=== PATIENT | male | born 1955 | race Caucasian/White ===

== ENCOUNTER 2017-11-26 15:51 | Outpatient (REF) | payer BC, SELFPAY ==
[2017-11-28 17:16] LABS: Osmolality, Urine 553 mos/kg (150-1150)
== END 2017-11-26 16:11 ==
LOC: LBN 15:51
PROVIDERS: PCP Family Medicine; Visit Provider Nurse Practitioner Family
DX: R35.8 Other polyuria (principal); R35.0 Frequency of micturition
CPT/HCPCS: 83935; 87086

== ENCOUNTER 2017-12-01 01:09 | Outpatient (CLI) | payer BC, SELFPAY ==
--- NOTE | 2017-12-01 09:33 | DI.US_ITS ---
SYMPTOM/DIAGNOSIS: URINARY FREQ. SENSATION OF INCOMPLETE EMPTYING BPH WITH LUTS, R33.9, R35.0 RENAL ULTRASOUND: The right kidney measured 11.8 x 6.0 x 4.7 cm. A 2 x 1.7 x 2 cm superior medial pole cyst is seen. The left kidney measured 11.3 x 6.2 x 5.7 cm and is unremarkable. The pre-void bladder contains 138 cc. Both ureteral jets were visualized. The post-void bladder contains 12 cc. The prostatic volume is 22 cc. SUMMARY: The examination is unremarkable save for a right renal cyst measuring 2 x 1.7 x 2 cm. The prostate appears to be top limits of normal in size.
[2017-12-01 12:09] LABS: BUN 16 mg/dL (7-18); Calcium 8.4 mg/dL (8.5-10.1); Chloride 106 mmol/L (98-107); Glucose 97 mg/dL (70-100); Potassium 4.8 mmol/L (3.5-5.1); Sodium 141 mmol/L (136-145)
[2017-12-01 12:22] LABS: Hemoglobin A1C 5.7 % (4.5-6.2)
[2017-12-02 10:07] LABS: PSA, Screening 1.2 ng/ml (0-4.5)
== END 2017-12-01 01:29 ==
PROVIDERS: PCP Family Medicine; Visit Provider Nurse Practitioner Family
DX: R33.9 Retention of urine, unspecified (principal); R35.0 Frequency of micturition; N40.1 Benign prostatic hyperplasia with lower urinary tract symptoms
CPT/HCPCS: 36415; 76770; 80048; 84153; 83036

== ENCOUNTER 2018-09-05 07:32 | Emergency (ER) | payer BC, SELFPAY ==
[2018-09-05 07:34] VITALS: BP 146/70; PULSE 54; RESP 14; TEMP 36.3; O2SAT 100
--- NOTE | 2018-09-05 07:39 | W.ED.GENAD ---
Discharge Plan Disposition Patient Disposition: HOME Condition: Stable Discharge Details Chief Complaint: FlankPain Clinical Impression: Left ureteral stone Primary Care Provider: Conor Rizzo ED Provider: Becki Mckeon Home Meds and New Rx's Prescriptions: New oxycodone-acetaminophen [Percocet] 5-325 mg tablet 1 tab PO Q8H PRN (Reason: pain) Qty: 9 RF: 0 tamsulosin [Flomax] 0.4 mg capsule 0.4 mg PO DAILY Qty: 7 RF: 0 ondansetron 4 mg tablet,disintegrating 4 mg PO Q8H PRN (Reason: nausea and vomiting) Qty: 9 RF: 0 Continued aspirin [Aspir-81] 81 MG tablet,delayed release (DR/EC) 81 mg PO DAILY RF: 0 multivitamin [Daily Multi-Vitamin] 1 EACH tablet 1 ea PO DAILY RF: 0 triamcinolone acetonide 15 GM cream 1 film Topical 2-4 times daily PRN Qty: 1 RF: 0 sumatriptan succinate [Imitrex] 100 MG tablet 50 mg PO PRN Qty: 9 RF: 11 Discharge Instructions Instructions: Oxycodone/Acetaminophen (By mouth), Tamsulosin (By mouth), Kidney Stones (ED), How to Strain Your Urine (ED) Additional Instructions: Please return immediately to the emergency department if you develop any new or worsening symptoms or if you become otherwise concerned. It is extremely important that you call as soon as possible to make an appointment to be seen in follow-up this visit by her primary care doctor and also by a urologist. Referrals: Wu Fall MD [ [facility] STAFF PHYSICIAN] - Conor Rizzo DO [Primary Care Provider] - Discharge Data Discharge Date/Time-TO BE ENTERED AT DEPARTURE: 09/05/18 11:42 Medical Decision Making Hair Nelson is a 62-year-old man with history of GERD, hyperlipidemia who presented to the emergency department with waxing and waning left-sided flank pain that began at 4 AM this morning, now significantly improved without intervention. On exam patient is very well and nontoxic appearing, appears comfortable. No CVA tenderness, no abdominal tenderness to palpation. Concern for likely ureterolithiasis, possibly passed versus pyelonephritis versus other. Exam/history is not consistent with acute aortic pathology, sepsis, ACS, testicular torsion, orchitis, other acute emergent testicular etiology. Plan for CT renal stone, screening labs, IV fluid hydration, IV pain control, IV Zofran. Will monitor and reassess. Pt with several episodes of severe flank pain improved with IV dialudid, toradol. 2x3mm stone left ureteral stone on CT. No UTI on UA. I called and spoke with Dr. Fall of urology and relayed Pt presentation and results, who recommended flomax 0.4mg daily, will see pt as outpt in f/u. I offered admission for pain control vs outpt management with Pt, who requests discharge at this time. Plan for rx zofran, percocet, flomax, and OTC ibuprofen. I had a lengthy discussion with the Pt re: RTED precautions and importance of outpt f/u with Pts' PCP and urology. Pt verbalized understanding of the plan and was amenable. Pt was d/rosanne to home with clear plan for outpt f/u. All questions were answered. Medical Records Medical records reviewed: Yes I reviewed the patient's medical records. Imaging Data Radiologic Study: Attestation: I personally reviewed and interpreted this imaging study as follows: Radiologist's impression: NONCONTRAST CT ABDOMEN AND PELVIS: Comparison is made with abdomen ultrasound dated 01 Dec 2017. There is moderate left hydronephrosis secondary to a 2-3 mm stone in the mid left ureter. There are additional nonobstructing stones in the upper and lower poles of the left kidney. A cyst is noted at the upper pole of the right kidney. No right renal calculi are seen. The prostate is mildly enlarged. The bladder is unremarkable. The heart size is normal. The lung bases show dependent changes. There is a cyst in the left lobe of the liver. The gallbladder, spleen, adrenals and pancreas are unremarkable. There is no bowel dilatation or inflammatory change. There are a few diverticula in the sigmoid colon. There is a normal quantity of stool. Severe degenerative disc changes are seen in the lumbar spine. The aorta shows mild calcification and is normal in diameter. IMPRESSION: Moderate left hydronephrosis secondary to a 2x3 mm stone in the mid left ureter. Lab Data Lab results reviewed: Yes I reviewed the patient's lab results. Laboratory Tests Range/Units 09/05/18 09/05/18 09/05/18 07:46 07:46 09:06 WBC (4.4-10.8) k/cumm 7.63 RBC (4.50-6.00) m/cumm 4.27 L Hgb (13.5-17.5) g/dL 13.5 Hct (40.0-50.0) % 39.9 L MCV (80-95) fL 93.4 MCH (27.0-33.0) pg 31.6 MCHC (32.0-36.0) g/dL 33.8 RDW (11.8-14.1) % 12.8 Plt Count (130-400) x1000/uL 219 MPV (8.0-11.0) fL 10.4 Immature Gran % 0.4 Neutrophils % 88.5 Lymphocytes % 5.8 Monocytes % 4.2 Eosinophils % 0.8 Basophils % 0.3 Absolute Neutrophils (1.2-6.7) k/cumm 6.76 H Absolute Lymphocytes (1.2-3.4) k/cumm 0.44 L Absolute Monocytes (0.11-0.7) k/cumm 0.32 Absolute Eosinophils (0.0-0.7) k/cumm 0.06 Absolute Basophils (0.0-0.2) k/cumm 0.02 Sodium (136-145) mmol/L 144 Potassium (3.5-5.1) mmol/L 4.4 Chloride (98-107) mmol/L 107 Carbon Dioxide (21.0-32.0) mmol/L 27.7 Anion Gap (3-11) mmol/L 9.3 BUN (7-18) mg/dL 19 H Creatinine (0.70-1.30) mg/dL 1.29 Estimated GFR/1.73 m2 (mL/min/1.73m2) 56.07 Glucose (70-100) mg/dL 130 H Calcium (8.5-10.1) mg/dL 8.3 L Total Bilirubin (0.2-1.0) mg/dL 0.2 AST (15-37) U/L 18 ALT (12-78) U/L 28 Alkaline Phosphatase (46-116) U/L 147 H Total Protein (6.4-8.2) g/dL 7.0 Albumin (3.4-5.0) g/dL 3.5 Urine Color (Yellow) Yellow Urine Clarity (Clear) Clear Urine pH (5-8) 5.5 Ur Specific Alverda (1.005-1.025) >= 1.030 H Urine Protein (Negative) mg/dL Trace H Urine Ketones (Negative) mg/dL Negative Urine Blood (Negative) Trace-intact H Urine Nitrite (Negative) Negative Urine Bilirubin (Negative) Negative Urine Urobilinogen (Up TO 0.2) EU/dL 0.2 Ur Leukocyte Esterase (Negative) Negative Urine RBC (0-2) 3-5 H Urine WBC (0-5) HPF 0-2 Ur Epithelial Cells (Negative) HPF Few Urine Crystals (Negative) HPF Negative Urine Bacteria (Negative) HPF Rare Urine Casts (Negative) LPF 0-2 hyaline Urine Mucus (Negative) Moderate Ur Culture Indicated? No Urine Glucose (Negative) mg/dL Negative HPI General Mode of arrival: ambulatory. Date/Time Provider Initiated Documentation: 09/05/18 07:39. Limitations to Documentation: no limitations. Information obtained by: patient, family, RN notes reviewed and old records reviewed. HPI Narrative: Hair Nelson is a 62-year-old man with history of hyperlipidemia, GERD presenting to the emergency department with left flank pain. Patient reports that he woke up at 4 AM this morning with stabbing pain to his left flank. He also had significant dry heaving. Patient is accompanied by his who also provides a history. They report that pain has been waxing and waning, with several episodes of severe left flank pain accompanied by nausea. Last episode of pain occurred just prior to arrival in the emergency department, patient vomited Gatorade that he had drank just prior. He reports some radiation of the pain when it occurs into his left abdomen and testicles, no abd or testicular pain currently. Patient reports that he took nothing at home for the pain. He reports that pain level is currently a 2 out of 10, and is the lowest since he started earlier this morning. He denies any other pain, fevers, diarrhea, constipation, pain with urination, weakness/numbness of the extremities, shortness of breath, cough. Patient reports that yesterday he was pain-free in his usual state of health. Had been eating and drinking as usual. Patient reports that he does not think he has urinated since onset of pain this morning. Never had similar symptoms in the past. Related Data Home Medications Medication Instructions Recorded Confirmed aspirin [Aspir-81] 81 mg PO DAILY tab 04/17/13 09/05/18 multivitamin [Daily Multi-Vitamin] 1 ea PO DAILY tab 04/17/13 09/05/18 triamcinolone acetonide 1 film TOPICAL 2-4 times daily PRN 02/22/17 09/05/18 #1 tube sumatriptan succinate [Imitrex] 50 mg PO PRN #9 tab 07/21/17 09/05/18 ondansetron 4 mg PO Q8H PRN #9 tab 09/05/18 oxycodone-acetaminophen [Percocet] 1 tab PO Q8H PRN #9 tab 09/05/18 tamsulosin [Flomax] 0.4 mg PO DAILY #7 cap 09/05/18 Previous Rx's Medication Instructions Recorded triamcinolone acetonide 1 film TOPICAL 2-4 times daily PRN 02/22/17 #1 tube sumatriptan succinate [Imitrex] 50 mg PO PRN #9 tab 07/21/17 ondansetron 4 mg PO Q8H PRN #9 tab 09/05/18 oxycodone-acetaminophen [Percocet] 1 tab PO Q8H PRN #9 tab 09/05/18 tamsulosin [Flomax] 0.4 mg PO DAILY #7 cap 09/05/18 Allergies Allergy/AdvReac Type Severity Reaction Status Date / Time No Known Allergies Allergy Verified 09/05/18 07:37 General Stated Complaint: Urinary ANANTH: 3 Review of Systems Review of Systems Constitutional: denies fevers Eyes: denies eye pain ENT: denies facial pain, dental pain, sore throat Cardiovascular: denies chest pain, edema Respiratory: denies SOB, cough GI: denies constipation, diarrhea, reports mild left lower quadrant pain, nausea/vomiting : Reports flank pain MSK: denies back pain, neck pain, arthralgias, myalgias Skin: denies rash Neuro: denies headaches, numbness, weakness [facility] Medical History Migraine (Chronic 03/07/69) Irritable bowel syndrome (Chronic 03/07/94) Hyperlipidemia (Chronic 03/07/94) Esophageal reflux (Chronic 02/05/02) 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) Backache, unspecified (Chronic 09/05/02) Social History Smoking/Tobacco Use Status: Never Alcohol Intake: current Alcohol Intake frequency: holidays/special occasions only Drug use: Never Substance use type: does not use Household members: spouse Housing: house Number of Children: 2 current occupation: self-contractor What type of physical activity do you participate in: regular exercise Frequency: daily Seatbelt use: always Helmet use: Yes Drive intox or ride w/intox company truck driver: No Water heater temp set <120 deg: Yes Working smoke detector in home: Yes Fire extinguisher in home: Yes Carbon monox detector in home: Yes Do you feel safe at home: Yes Do you feel safe in your relationship?: Yes Exam Narrative Exam Narrative: Constitutional: well and [id number], pleasant, conversing normally HENT: head atraumatic/normocephalic/normal inspection, mucous membranes moist Eyes: conjunctiva normal, sclera normal, pupils 3mm b/l Neck: no stridor, normal ROM, trachea midline Chest: normal inspection Resp: normal work of breathing, LCTAB Cardio: normal rate, normal rhythm, no murmur appreciated GI: abdomen soft, non-tender, non-distended, no CVA tenderness to palpation Back: normal inspection, no rash, no tenderness to palpation Skin: warm, dry, normal color, no rash Neuro: alert, not altered, grossly non-focal, normal tone Ext: no edema Psych: normal mood, normal affect, normal behavior Course Vital Signs Temperature 36.3 C L 09/05/18 07:34 Pulse 54 L 09/05/18 07:34 Respiratory Rate 14 09/05/18 07:34 Blood Pressure 146/70 H 09/05/18 07:34 Pulse Oximetry 100 09/05/18 07:34 Temperature 36.3 C L 09/05/18 07:34 Temperature Source Temporal Artery Scan 09/05/18 07:34 Pulse 54 L 09/05/18 07:34 Respiratory Rate 14 09/05/18 07:34 Respiratory Effort Non-Labored 09/05/18 07:36 Blood Pressure 146/70 H 09/05/18 07:34 Blood Pressure Position Sitting 09/05/18 07:34 Pulse Oximetry 100 09/05/18 07:34 Oxygen Delivery Method Room Air 09/05/18 07:34 Oxygen Flow Rate 0 09/05/18 07:34 Pain Level 3 09/05/18 07:37
[2018-09-05] MEDS: Normal Saline 1,000 ML 1000 ML IV (07:51)
--- NOTE | 2018-09-05 07:57 | DI.CT_ITS ---
SYMPTOM/DIAGNOSIS: LEFT FLANK PAIN NONCONTRAST CT ABDOMEN AND PELVIS: Comparison is made with abdomen ultrasound dated 01 Dec 2017. There is moderate left hydronephrosis secondary to a 2-3 mm stone in the mid left ureter. There are additional nonobstructing stones in the upper and lower poles of the left kidney. A cyst is noted at the upper pole of the right kidney. No right renal calculi are seen. The prostate is mildly enlarged. The bladder is unremarkable. The heart size is normal. The lung bases show dependent changes. There is a cyst in the left lobe of the liver. The gallbladder, spleen, adrenals and pancreas are unremarkable. There is no bowel dilatation or inflammatory change. There are a few diverticula in the sigmoid colon. There is a normal quantity of stool. Severe degenerative disc changes are seen in the lumbar spine. The aorta shows mild calcification and is normal in diameter. IMPRESSION: Moderate left hydronephrosis secondary to a 2x3 mm stone in the mid left ureter.
--- NOTE | 2018-09-05 08:00 | ED.GENADUL_ITS ---
Discharge Plan Disposition Patient Disposition: HOME Condition: Stable Discharge Details Chief Complaint: FlankPain Clinical Impression: Left ureteral stone Primary Care Provider: Conor Rizzo ED Provider: Becki Mckeon Home Meds and New Rx's Prescriptions: New oxycodone-acetaminophen [Percocet] 5-325 mg tablet 1 tab PO Q8H PRN (Reason: pain) Qty: 9 RF: 0 tamsulosin [Flomax] 0.4 mg capsule 0.4 mg PO DAILY Qty: 7 RF: 0 ondansetron 4 mg tablet,disintegrating 4 mg PO Q8H PRN (Reason: nausea and vomiting) Qty: 9 RF: 0 Continued aspirin [Aspir-81] 81 MG tablet,delayed release (DR/EC) 81 mg PO DAILY RF: 0 multivitamin [Daily Multi-Vitamin] 1 EACH tablet 1 ea PO DAILY RF: 0 triamcinolone acetonide 15 GM cream 1 film Topical 2-4 times daily PRN Qty: 1 RF: 0 sumatriptan succinate [Imitrex] 100 MG tablet 50 mg PO PRN Qty: 9 RF: 11 Discharge Instructions Instructions: Oxycodone/Acetaminophen (By mouth), Tamsulosin (By mouth), Kidney Stones (ED), How to Strain Your Urine (ED) Additional Instructions: Please return immediately to the emergency department if you develop any new or worsening symptoms or if you become otherwise concerned. It is extremely important that you call as soon as possible to make an appointment to be seen in follow-up this visit by her primary care doctor and also by a urologist. Referrals: Wu Fall MD [ [facility] STAFF PHYSICIAN] - Conor Rizzo DO [Primary Care Provider] - Discharge Data Discharge Date/Time-TO BE ENTERED AT DEPARTURE: 09/05/18 11:42 Medical Decision Making Hair Nelson is a 62-year-old man with history of GERD, hyperlipidemia who presented to the emergency department with waxing and waning left-sided flank pain that began at 4 AM this morning, now significantly improved without intervention. On exam patient is very well and nontoxic appearing, appears comfortable. No CVA tenderness, no abdominal tenderness to palpation. Concern for likely ureterolithiasis, possibly passed versus pyelonephritis versus other. Exam/history is not consistent with acute aortic pathology, sepsis, ACS, testicular torsion, orchitis, other acute emergent testicular etiology. Plan for CT renal stone, screening labs, IV fluid hydration, IV pain control, IV Zofran. Will monitor and reassess. Pt with several episodes of severe flank pain improved with IV dialudid, toradol. 2x3mm stone left ureteral stone on CT. No UTI on UA. I called and spoke with Dr. Fall of urology and relayed Pt presentation and results, who recommended flomax 0.4mg daily, will see pt as outpt in f/u. I offered admission for pain control vs outpt management with Pt, who requests discharge at this t brandy. Plan for rx zofran, percocet, flomax, and OTC ibuprofen. I had a lengthy discussion with the Pt re: RTED precautions and importance of outpt f/u with Pts' PCP and urology. Pt verbalized understanding of the plan and was amenable. Pt was d/rosanne to home with clear plan for outpt f/u. All questions were answered. Medical Records Medical records reviewed: Yes I reviewed the patient's medical records. Imaging Data Radiologic Study: Attestation: I personally reviewed and interpreted this imaging study as follows: Radiologist's impression: NONCONTRAST CT ABDOMEN AND PELVIS: Comparison is made with abdomen ultrasound dated 01 Dec 2017. There is moderate left hydronephrosis secondary to a 2-3 mm stone in the mid left ureter. There are additional nonobstructing stones in the upper and lower poles of the left kidney. A cyst is noted at the upper pole of the right kidney. No right renal calculi are seen. The prostate is mildly enlarged. The bladder is unremarkable. The heart size is normal. The lung bases show dependent changes. There is a cyst in the left lobe of the liver. The gallbladder, spleen, adrenals and pancreas are unremarkable. There is no bowel dilatation or inflammatory change. There are a few diverticula in the sigmoid colon. There is a normal quantity of stool. Severe degenerative disc changes are seen in the lumbar spine. The aorta shows mild calcification and is normal in diameter. IMPRESSION: Moderate left hydronephrosis secondary to a 2x3 mm stone in the mid left ureter. Lab Data Lab results reviewed: Yes I reviewed the patient's lab results. Laboratory Tests Range/Units 09/05/18 09/05/18 09/05/18 07:46 07:46 09:06 WBC (4.4-10.8) k/cumm 7.63 RBC (4.50-6.00) m/cumm 4.27 L Hgb (13.5-17.5) g/dL 13.5 Hct (40.0-50.0) % 39.9 L MCV (80-95) fL 93.4 MCH (27.0-33.0) pg 31.6 MCHC (32.0-36.0) g/dL 33.8 RDW (11.8-14.1) % 12.8 Plt Count (130-400) x1000/uL 219 MPV (8.0-11.0) fL 10.4 Immature Gran % 0.4 Neutrophils % 88.5 Lymphocytes % 5.8 Monocytes % 4.2 Eosinophils % 0.8 Basophils % 0.3 Absolute Neutrophils (1.2-6.7) k/cumm 6.76 H Absolute Lymphocytes (1.2-3.4) k/cumm 0.44 L Absolute Monocytes (0.11-0.7) k/cumm 0.32 Absolute Eosinophils (0.0-0.7) k/cumm 0.06 Absolute Basophils (0.0-0.2) k/cumm 0.02 Sodium (136-145) mmol/L 144 Potassium (3.5-5.1) mmol/L 4.4 Chloride (98-107) mmol/L 107 Carbon Dioxide (21.0-32.0) mmol/L 27.7 Anion Gap (3-11) mmol/L 9.3 BUN (7-18) mg/dL 19 H Creatinine (0.70-1.30) mg/dL 1.29 Estimated GFR/1.73 m2 (mL/min/1.73m2) 56.07 Glucose (70-100) mg/dL 130 H Calcium (8.5-10.1) mg/dL 8.3 L Total Bilirubin (0.2-1.0) mg/dL 0.2 AST (15-37) U/L 18 ALT (12-78) U/L 28 Alkaline Phosphatase (46-116) U/L 147 H Total Protein (6.4-8.2) g/dL 7.0 Albumin (3.4-5.0) g/dL 3.5 Urine Color (Yellow) Yellow Urine Clarity (Clear) Clear Urine pH (5-8) 5.5 Ur Specific [place] (1.005-1.025) >= 1.030 H Urine Protein (Negative) mg/dL Trace H Urine Ketones (Negative) mg/dL Negative Urine Blood (Negative) Trace-intact H Urine Nitrite (Negative) Negative Urine Bilirubin (Negative) Negative Urine Urobilinogen (Up TO 0.2) EU/dL 0.2 Ur Leukocyte Esterase (Negative) Negative Urine RBC (0-2) 3-5 H Urine WBC (0-5) HPF 0-2 Ur Epithelial Cells (Negative) HPF Few Urine Crystals (Negative) HPF Negative Urine Bacteria (Negative) HPF Rare Urine Casts (Negative) LPF 0-2 hyaline Urine Mucus (Negative) Moderate Ur Culture Indicated? No Urine Glucose (Negative) mg/dL Negative HPI General Mode of arrival: ambulatory . Date/Time Provider Initiated Documentation: 09/05/18 07:39 . Limitations to Documentation: no limitations . Information obtained by: patient, family, RN notes reviewed and old records reviewed . HPI Narrative: Hair Nelson is a 62-year-old man with history of hyperlipidemia, GERD presenting to the emergency department with left flank pain. Patient reports that he woke up at 4 AM this morning with stabbing pain to his left flank. He also had significant dry heaving. Patient is accompanied by his who also provides a history. They report that pain has been waxing and waning, with several episodes of severe left flank pain accompanied by nausea. Last episode of pain occurred just prior to arrival in the emergency department, patient vomited Gatorade that he had drank just prior. He reports some radiation of the pain when it occurs into his left abdomen and testicles, no abd or testicular pain currently. Patient reports that he took nothing at home for the pain. He reports that pain level is currently a 2 out of 10, and is the lowest since he started earlier this morning. He denies any other pain, fevers, diarrhea, constipation, pain with urination, weakness/numbness of the extremities, shortness of breath, cough. Patient reports that yesterday he was pain-free in his usual state of health. Had been eating and drinking as usual. Patient reports that he does not think he has urinated since onset of pain this morning. Never had similar symptoms in the past. Related Data Home Medications Medication Instructions Recorded Confirmed aspirin [Aspir-81] 81 mg PO DAILY tab 04/17/13 09/05/18 multivitamin [Daily Multi-Vitamin] 1 ea PO DAILY tab 04/17/13 09/05/18 triamcinolone acetonide 1 film TOPICAL 2-4 times daily PRN 02/22/17 09/05/18 #1 tube sumatriptan succinate [Imitrex] 50 mg PO PRN #9 tab 07/21/17 09/05/18 ondansetron 4 mg PO Q8H PRN #9 tab 09/05/18 oxycodone-acetaminophen [Percocet] 1 tab PO Q8H PRN #9 tab 09/05/18 tamsulosin [Flomax] 0.4 mg PO DAILY #7 cap 09/05/18 Previous Rx's Medication Instructions Recorded triamcinolone acetonide 1 film TOPICAL 2-4 times daily PRN 02/22/17 #1 tube sumatriptan succinate [Imitrex] 50 mg PO PRN #9 tab 07/21/17 ondansetron 4 mg PO Q8H PRN #9 tab 09/05/18 oxycodone-acetaminophen [Percocet] 1 tab PO Q8H PRN #9 tab 09/05/18 tamsulosin [Flomax] 0.4 mg PO DAILY #7 cap 09/05/18 Allergies Allergy/AdvReac Type Severity Reaction Status Date / Time No Known Allergies Allergy Verified 09/05/18 07:37 General Stated Complaint: Urinary ANANTH: 3 Review of Systems Review of Systems Constitutional: denies fevers Eyes: denies eye pain ENT: denies facial pain, dental pain, sore throat Cardiovascular: denies chest pain, edema Respiratory: denies SOB, cough GI: denies constipation, diarrhea, reports mild left lower quadrant pain, nausea/vomiting : Reports flank pain MSK: denies back pain, neck pain, arthralgias, myalgias Skin: denies rash Neuro: denies headaches, numbness, weakness [facility] Medical History Migraine (Chronic 03/07/69) Irritable bowel syndrome (Chronic 03/07/94) Hyperlipidemia (Chronic 03/07/94) Esophageal reflux (Chronic 02/05/02) 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) Backache, unspecified (Chronic 09/05/02) Social History Smoking/Tobacco Use Status: Never Alcohol Intake: current Alcohol Intake frequency: holidays/special occasions only Drug use: Never Substance use type: does not use Household members: spouse Housing: house Number of Children: 2 current occupation: self-contractor What type of physical activity do you participate in: regular exercise Frequency: daily Seatbelt use: always Helmet use: Yes Drive intox or ride w/intox food service driver: No Water heater temp set <120 deg: Yes Working smoke detector in home: Yes Fire extinguisher in home: Yes Carbon monox detector in home: Yes Do you feel safe at home: Yes Do you feel safe in your relationship?: Yes Exam Narrative Exam Narrative: Constitutional: well and [id number], pleasant, conversing normally HENT: head atraumatic/normocephalic/normal inspection, mucous membranes moist Eyes: conjunctiva normal, sclera normal, pupils 3mm b/l Neck: no stridor, normal ROM, trachea midline Chest: normal inspection Resp: normal work of breathing, LCTAB Cardio: normal rate, normal rhythm, no murmur appreciated GI: abdomen soft, non-tender, non-distended, no CVA tenderness to palpation Back: normal inspection, no rash, no tenderness to palpation Skin: warm, dry, normal color, no rash Neuro: alert, not altered, grossly non-focal, normal tone Ext: no edema Psych: normal mood, normal affect, normal behavior Course Vital Signs Temperature 36.3 C L 09/05/18 07:34 Pulse 54 L 09/05/18 07:34 Respiratory Rate 14 09/05/18 07:34 Blood Pressure 146/70 H 09/05/18 07:34 Pulse Oximetry 100 09/05/18 07:34 Temperature 36.3 C L 09/05/18 07:34 Temperature Source Temporal Artery Scan 09/05/18 07:34 Pulse 54 L 09/05/18 07:34 Respiratory Rate 14 09/05/18 07:34 Respiratory Effort Non-Labored 09/05/18 07:36 Blood Pressure 146/70 H 09/05/18 07:34 Blood Pressure Position Sitting 09/05/18 07:34 Pulse Oximetry 100 09/05/18 07:34 Oxygen Delivery Method Room Air 09/05/18 07:34 Oxygen Flow Rate 0 09/05/18 07:34 Pain Level 3 09/05/18 07:37
[2018-09-05 08:12] LABS: Abs Immature Grans 0.03 k/cumm (0.0-0.09); Absolute Basophil Count 0.02 k/cumm (0.0-0.2); Absolute Eosinophil Count 0.06 k/cumm (0.0-0.7); Absolute Lymphocyte Count 0.44 k/cumm (1.2-3.4); Absolute Monocyte Count 0.32 k/cumm (0.11-0.7); Absolute Neutrophil Count 6.76 k/cumm (1.2-6.7); Basophils % 0.3; Eosinophils % 0.8; HCT 39.9 % (40.0-50.0); HGB 13.5 g/dL (13.5-17.5); Immature Grans % 0.4; Lymphocytes % 5.8; Mean Corp. HGB Concentration 33.8 g/dL (32.0-36.0); Mean Corpuscular Hemoglobin 31.6 pg (27.0-33.0); Mean Corpuscular Volume 93.4 fL (80-95); Mean Platelet Volume 10.4 fL (8.0-11.0); Monocytes % 4.2; Neutrophils % 88.5; Platelet Count 219 x1000/uL (130-400); RBC 4.27 m/cumm (4.50-6.00); RBC Distribution Width 12.8 % (11.8-14.1); White Blood Cell Count 7.63 k/cumm (4.4-10.8)
[2018-09-05] MEDS: Normal Saline Flush 10 ML SYR IVP ×2 (08:12→10:24)
[2018-09-05] MEDS: Ondansetron 4 MG/2 ML VIAL IVP (08:12)
[2018-09-05] MEDS: HYDROmorphone 2 MG/ML VIAL 0.5 MG IVP ×2 (08:28→10:06)
[2018-09-05 08:42] LABS: ALT 28 U/L (12-78); AST 18 U/L (15-37); Albumin 3.5 g/dL (3.4-5.0); Alkaline Phosphatase 147 U/L (46-116); Anion Gap 9.3 mmol/L (3-11); BUN 19 mg/dL (7-18); Bilirubin, Total 0.2 mg/dL (0.2-1.0); CO2 27.7 mmol/L (21.0-32.0); CREATININE 1.29 mg/dL (0.70-1.30); Calcium 8.3 mg/dL (8.5-10.1); Chloride 107 mmol/L (98-107); Estimated GFR 56.07 (mL/min/1.73m2); Glucose 130 mg/dL (70-100); Potassium 4.4 mmol/L (3.5-5.1); Sodium 144 mmol/L (136-145)
[2018-09-05 09:35] LABS: Bilirubin Negative (Negative); Blood Trace-intact (Negative); Clarity Clear (Clear); Glucose Negative (Negative); Ketones Negative (Negative); Leukocyte Esterase Negative (Negative); Nitrite Negative (Negative); Specific Gravity >= 1.030 (1.005-1.025); Urobilinogen 0.2 EU/dL (Up TO 0.2); pH 5.5 (5-8)
[2018-09-05 09:49] LABS: Bacteria Rare HPF (Negative); Epithelial Cells Few HPF (Negative); WBC 0-2 HPF (0-5)
[2018-09-05 09:50] LABS: Crystals Negative HPF (Negative)
[2018-09-05 09:52] LABS: Mucus Moderate (Negative)
[2018-09-05 09:53] LABS: C & S Indicated? No; Casts 0-2 Hyaline LPF (Negative)
[2018-09-05] MEDS: Ketorolac 30 MG/ML VIAL (10:24)
--- NOTE | 2018-09-12 19:07 | NUR.NOTE ---
Nursing Note: Referral was faxed today for follow to Urology. Kimberly Marte.
== END 2018-09-05 11:42 | disposition home or self-care (01) ==
PROVIDERS: Emergency Provider Student in an Organized Health Care Education/Training Program; PCP Family Medicine
DX: N13.2 Hydronephrosis with renal and ureteral calculous obstruction (principal)
CPT/HCPCS: 36415; 80053; 96361; 96374; 96375; 96376; 99284; 74176; 81003; 81015; 85025; J1885; J2405; J3490

== ENCOUNTER 2019-01-16 07:10 | Emergency (ER) | payer BC, SELFPAY ==
[2019-01-16 07:17] VITALS: BP 137/83; PULSE 57; RESP 15; TEMP 36.6; O2SAT 99
--- NOTE | 2019-01-16 07:31 | W.ED.GENAD ---
Discharge Plan Disposition Patient Disposition: HOME Condition: Good Discharge Details Chief Complaint: Chest/Rib Clinical Impression: Rib pain on right side Primary Care Provider: Conor Rizzo ED Provider: Becki Mckeon Home Meds and New Rx's Prescriptions: New lidocaine [Lidoderm] 1 PATCH patch 1 patch Topical Q24H Qty: 4 RF: 0 No Action aspirin [Aspir-81] 81 MG tablet,delayed release (DR/EC) 81 mg PO DAILY RF: 0 multivitamin [Daily Multi-Vitamin] 1 EACH tablet 1 ea PO DAILY RF: 0 triamcinolone acetonide 15 GM cream 1 film Topical 2-4 times daily PRN Qty: 1 RF: 0 sumatriptan succinate [Imitrex] 100 MG tablet 50 mg PO PRN Qty: 9 RF: 11 oxycodone-acetaminophen [Percocet] 5-325 mg tablet 1 tab PO Q8H PRN (Reason: pain) Qty: 9 RF: 0 tamsulosin [Flomax] 0.4 mg capsule 0.4 mg PO DAILY Qty: 7 RF: 0 ondansetron 4 mg tablet,disintegrating 4 mg PO Q8H PRN (Reason: nausea and vomiting) Qty: 9 RF: 0 Discharge Instructions Instructions: Rib Fracture (ED) Additional Instructions: Please take 1000 mg of Tylenol every 6 hours and 600 mg of ibuprofen every 6 hours as needed for pain. Please use the Lidoderm patch as directed. Please use your incentive spirometer as often as possible throughout the day. If your pain is not tolerable with these techniques you can always come back and have a rib block as we discussed. If you notice any worsening of your symptoms, or any new symptoms such as vomiting, diarrhea, fever, chills, shortness of breath, chest pain, numbness, weakness, or fainting , please return immediately to the emergency department for reevaluation. Please follow up with your primary care provider as soon as possible for reassessment and reevaluation. As always, it was a pleasure participating in your medical care today. Referrals: Conor Rizzo DO [Primary Care Provider] - Discharge Data Discharge Date/Time-TO BE ENTERED AT DEPARTURE: 01/16/19 09:15 Medical Decision Making <Charles Sanchez DO - Last Filed: 01/16/19 08:01> This is a pleasant 63-year-old male who presents for evaluation of right rib pain. Patient fell 3 days ago and landed on his right ribs. His pain was moderate until the last 12 hours when he coughed and heard a pop after which his pain notably worsened. Exam demonstrates ecchymosis and bruising over the right lower lip ribs. Bedside E fast demonstrates no evidence of intra-abdominal free fluid, pneumothorax or other abnormality. Signs and symptoms are clinically inconsistent with acute abdominal bleed, or pneumothorax. We will treat with Lidoderm patch, Tylenol, Motrin and get an x-ray. Currently the patient does not want any CT imaging or additional pain meds. <Becki Mckeon MD - Last Filed: 01/23/19 09:27> Hair Nelson is a 63-year-old man who presented to the emergency department with right-sided rib pain, he was signed out to me by Dr. Sanchez at time of shift change with x-rays pending. X-rays negative. On reassessment patient reports pain improved. Suspect rib contusion vs occult rib fx. Plan for ibuprofen, Tylenol, Lidoderm patch as per Dr. Sanchez. Plan for incentive spirometer. I had a lengthy discussion with the patient regarding return to emergency department precautions, importance of outpatient follow-up, and home care. Patient verbalized understanding of the plan was amenable. All questions were answered. Patient was discharged home with clear plan for outpatient follow-up. Medical Records Medical records reviewed: Yes I reviewed the patient's medical records. Imaging Data Radiologic Study: Attestation: I personally reviewed and interpreted this imaging study as follows: Radiologist's impression: EXAM: XR RIBS RT W PA LAT CHEST INDICATION: hit right lower ribs. COMPARISON: No exams were available for comparison TECHNIQUE: 2D digital imaging was performed. FINDINGS: Heart size and pulmonary vasculature are within normal limits. The lungs are clear. No effusion or pneumothorax is identified. There are degenerative changes in the spine. No rib fracture is identified. IMPRESSION: No acute abnormality. HPI <Charles Sanchez DO - Last Filed: 01/16/19 08:01> General Date/Time Provider Initiated Documentation: 01/16/19 07:13. HPI Narrative: This is a 63-year-old male with no significant past medical history who presents today for evaluation of right rib pain. Patient states that 3 days ago he fell and slipped and hit a concrete corner with his right ribs on the lower aspect. He had mild pain after that however in the last 12 hours he had notable cough and after that he heard a pop and had significant increase in his pain. Pain is made worse with breathing and coughing, if he is sitting still his pain is a 0. It is a 5 out of 10 when he is coughing or moving. He has not taken any Tylenol or Motrin. He denies any shortness of breath or abdominal pain. He denies any nausea or vomiting. He has no other complaints at this time. No other modifying factors. Related Data Home Medications Medication Instructions Recorded Confirmed aspirin [Aspir-81] 81 mg PO DAILY tab 04/17/13 01/16/19 multivitamin [Daily Multi-Vitamin] 1 ea PO DAILY tab 04/17/13 01/16/19 triamcinolone acetonide 1 film TOPICAL 2-4 times daily PRN 02/22/17 01/16/19 #1 tube sumatriptan succinate [Imitrex] 50 mg PO PRN #9 tab 07/21/17 01/16/19 ondansetron 4 mg PO Q8H PRN #9 tab 09/05/18 01/16/19 oxycodone-acetaminophen [Percocet] 1 tab PO Q8H PRN #9 tab 09/05/18 01/16/19 tamsulosin [Flomax] 0.4 mg PO DAILY #7 cap 09/05/18 01/16/19 lidocaine [Lidoderm] 1 patch TOPICAL Q24H #4 patch 01/16/19 Previous Rx's Medication Instructions Recorded triamcinolone acetonide 1 film TOPICAL 2-4 times daily PRN 02/22/17 #1 tube sumatriptan succinate [Imitrex] 50 mg PO PRN #9 tab 07/21/17 ondansetron 4 mg PO Q8H PRN #9 tab 09/05/18 oxycodone-acetaminophen [Percocet] 1 tab PO Q8H PRN #9 tab 09/05/18 tamsulosin [Flomax] 0.4 mg PO DAILY #7 cap 09/05/18 lidocaine [Lidoderm] 1 patch TOPICAL Q24H #4 patch 01/16/19 Allergies Allergy/AdvReac Type Severity Reaction Status Date / Time No Known Allergies Allergy Verified 01/16/19 07:24 General Stated Complaint: Chest/Rib ANANTH: 3 Review of Systems <Charles Sanchez DO - Last Filed: 01/16/19 08:01> All systems reviewed & are unremarkable except as noted in HPI and below PFSH <Charles Sanchez DO - Last Filed: 01/16/19 08:01> Social History Smoking/Tobacco Use Status: Never Alcohol Intake: current Alcohol Intake frequency: holidays/special occasions only Drug use: Never Substance use type: does not use Household members: spouse Housing: house Number of Children: 2 current occupation: self-contractor What type of physical activity do you participate in: regular exercise Frequency: daily Seatbelt use: always Helmet use: Yes Drive intox or ride w/intox race car driver: No Water heater temp set <120 deg: Yes Working smoke detector in home: Yes Fire extinguisher in home: Yes Carbon monox detector in home: Yes Do you feel safe at home: Yes Do you feel safe in your relationship?: Yes Exam <Charles Sanchez DO - Last Filed: 01/16/19 08:01> Narrative Exam Narrative: 1.Const: Well-nourished, Well-developed, appearing stated age 2.Eyes: PERRL, no conjunctival injection, and symmetrical lids. 3.ENT: Atraumatic external nose and ears. Moist MM. Neck: Symmetric, trachea midline, No thyromegaly. 4.CVS: Regular rate and rhythm, Normal s1 and s2. No murmurs, carotid bruits, rubs, or gallops. Radial pulses 2+ bilaterally and symmetric. Dorsalis pedis pulses 2+ bilaterally and symmetric. 2+ capillary refill. No evidence of distant heart sounds. No extremity edema. No evidence of gross hemorrhage. 5.RESP: Airway clear, no obstructions. Mild abrasions and ecchymosis noted over the right lower ribs. Chest movement symmetric with respirations. Notable chest wall tenderness over this. Trachea midline. No crepitus. No step offs. No paradoxical movements. Lungs are clear to auscultation bilaterally. No rales, rhonchi, wheezing or stridor. Breath sound symmetric. No Sucking chest wounds. 6.GI: Soft, Nontender/Nondistended, No hepatosplenomegaly. No guarding or rebound. No pain over the right lower abdomen. No abdominal pain or tenderness whatsoever. 7.MSK: Normocephalic/Atraumatic, Extremities w/o deformity or ttp No cyanosis or clubbing, Normal movement of all extremities. Please see pulmonary 8.Skin: Warm, Dry. Mild abrasion and ecchymosis over right ribs on the lower aspect 9.Neuro: airconditioning drafting officer II-XII grossly intact. Sensation grossly intact, no focal neurologic deficits. 10.Psych: (AAO) x3. Appropriate mood and affect Course <Charles Sanchez DO - Last Filed: 01/16/19 08:01> Vital Signs Vital signs: Vital Signs Temperature 36.6 C 01/16/19 07:17 Pulse 57 L 01/16/19 07:17 Respiratory Rate 15 01/16/19 07:17 Blood Pressure 137/83 01/16/19 07:17 Pulse Oximetry 99 01/16/19 07:17 Temperature 36.6 C 01/16/19 07:17 Temperature Source Temporal Artery Scan 01/16/19 07:17 Pulse 57 L 01/16/19 07:17 Respiratory Rate 15 01/16/19 07:17 Respiratory Effort Non-Labored 01/16/19 07:22 Respiratory Depth Normal 01/16/19 07:22 Respiratory Pattern Normal 01/16/19 07:22 Blood Pressure 137/83 01/16/19 07:17 Blood Pressure Position Sitting 01/16/19 07:17 Pulse Oximetry 99 01/16/19 07:17 Oxygen Delivery Method Room Air 01/16/19 07:17 Oxygen Flow Rate 0 01/16/19 07:17 Pain Level 10 01/16/19 07:22 Comment 01/16/19 07:17 Sign Out <Charles Sanchez DO - Last Filed: 01/16/19 08:01> Sign Out Data: Sign Out Comment: Pending x-ray reads for ribs Last updated by Charles Sanchez DO at 01/16/19 07:56
[2019-01-16] MEDS: Acetaminophen 500 MG TAB 1000 MG PO (07:37)
[2019-01-16] MEDS: Ibuprofen 800 MG TAB PO (07:37)
[2019-01-16] MEDS: Lidocaine 5% Patch 1 PATCH TP (07:37)
--- NOTE | 2019-01-16 07:55 | DI.RAD_ITS ---
EXAM: XR RIBS RT W PA LAT CHEST INDICATION: hit right lower ribs. COMPARISON: No exams were available for comparison TECHNIQUE: 2D digital imaging was performed. FINDINGS: Heart size and pulmonary vasculature are within normal limits. The lungs are clear. No effusion or pneumothorax is identified. There are degenerative changes in the spine. No rib fracture is identified. IMPRESSION: No acute abnormality.
[2019-01-16 09:07] VITALS: BP 137/83; PULSE 52; RESP 20; O2SAT 99
[2019-01-16 09:17] VITALS: BP 137/83; PULSE 52; RESP 15; TEMP 36.6; O2SAT 99
== END 2019-01-16 09:15 | disposition home or self-care (01) ==
PROVIDERS: Emergency Provider Student in an Organized Health Care Education/Training Program; PCP Family Medicine
DX: R07.81 Pleurodynia (principal); W01.0XXA Fall on same level from slipping, tripping and stumbling without subsequent striking against object, initial encounter
CPT/HCPCS: 99283; 71046; 71100; 99282

== ENCOUNTER 2019-11-27 10:08 | Day surgery (SDC) | payer BC, SELFPAY ==
--- NOTE | 2019-11-27 07:07 | W.COLOREPORT ---
Date of service: 11/27/19 Time of Service: 11:05 Colonoscopy Report Date of procedure: 11/27/19 Pre-op diagnosis general: Hx of polyps Post-op diagnosis procedure note: other (Polyps) Procedure: Colonoscopy with polypectomy Surgeon: Lisa Romero Anesthesia proc note operative: other (General/ASA 2/Veronica Ramos CRNA) Estimated blood loss (mL): 3 Pathology: other (cecal polyps x2, ascending polyp, polyp at 20 cm, rectal polyp x2) Complications: None Disposition: same day Indications: The patient is here for Colonoscopy pre-op. His last screening was in 2004 and was tubular adenoma. He has no family history of colon cancer. He has not had any bowel habit changes. -Discussed colonoscopy bowel prep as well as the procedure. Discussed possible complications of the procedure to include bleeding, pain, perforation, missed small lesion/polyp, sore throat, aspiration and adverse reaction to the medications. Questions were answered to patient?s satisfaction. No guarantees were implied or given. Prep: Miralax/Dulcolax Procedure Start Time: :05 Procedure End Time: :44 Retraction Time: 27 minutes Findings: multiple sessile polyps and 1 pedunculated polyp Procedure Description: After informed consent was obtained the patient was taken to the procedure room and placed in a left decubitous position. Monitors were applied and a time out was done. The patients name, date of , procedure, allergies to medications and metal in their body was reviewed. The patient was then sedated. Once sedated and comfortable a rectal exam was done. External exam was normal. Internal exam revealed a normal sphincter tone and no palpable masses. The prostate felt smooth. The scope was then introduced and retro-flexed. No internal hemorrhoids were identified. The scope was then advanced to the cecum without difficulty. The ileocecal valve and appendiceal orifice were identified. The prep was adequate. The scope was then slowly retracted over 27 minutes back into the rectum. Polyps were removed with hot snare in the cecum and at 20 cm, and with cold forceps in the cecum, ascending colon x1, and rectum x2. There were no diverticula. The scope was removed and the patient was woken up and taken back to Same day surgery in stable condition. The patient tolerated the procedure well and there were no immediate complications. Follow up: The patient should follow up in 3 years unless they develop changes in bowel habits or other new gastrointestinal complaints.
--- NOTE | 2019-11-27 07:09 | W.PM.DSUDISC ---
Discharge Plan Disposition Patient Disposition: HOME Condition: Good Discharge Details Reason For Visit: colonoscopy Attending Provider: Lisa Romero Primary Care Provider: Liliya Schafer Home Meds and New Rx's Prescriptions: Continued aspirin [Aspir-81] 81 MG tablet,delayed release (DR/EC) 81 mg PO DAILY RF: 0 sumatriptan succinate [Imitrex] 100 MG tablet 50 mg PO PRN Qty: 9 RF: 11 Discontinued polyethylene glycol 3350 17 gram/dose powder 238 g PO ONCE Qty: 238 RF: 0 bisacodyl [Dulcolax (bisacodyl)] 5 mg tablet,delayed release (DR/EC) 5 mg PO ONCE Qty: 4 RF: 0 Discharge Instructions Instructions: Colorectal Polyps (DC) Additional Instructions: Findings: 6 polyps were removed Follow up: 3 years Please call if you develop: fevers >101.5 Nausea or Vomiting Abdominal pain that is not transient DAY SURGERY UNIT POST ENDOSCOPY INSTRUCTIONS 1. Because there will be medication in your system for the next 24 hours, you may feel a little sleepy. Your coordination will be affected. Therefore: a. Do not drive or operate dangerous equipment for 24 hours. b. Do not drink alcohol beverages for 24 hours (not even beer). c. Plan to go home and rest for the day. 2. Generally there are no restrictions on your activity after a day or so has gone by, but you may feel a bit fatigued for a few days. 3 After you arrive home you may have a light meal and return to a normal diet as you can tolerate it without feeling sick to your stomach. 4. After surgery, you may feel pain or discomfort. This should be only transient, but if it persists please contact your doctor. 5. If there are any questions regarding the findings of your procedure, please feel free to contact your doctor. 6. If you are unable to contact your doctor with a problem, contact the hospital at [phone]. 7. Continue all your regular medications unless directed otherwise. I understand the above instructions and have no questions. Signature of Patient or Responsible Adult Escort Date/Time Name of Responsible Adult Escort Signature of Nurse Date/Time Activity:: Activity as Tolerated Diet:: As Tolerated Discharge Orders Discharge Orders: Discharge Order (Routine); Ordered 11/27/19 Ordered By: Lisa Romero
[2019-11-27 10:15] VITALS: BP 145/88; PULSE 56; RESP 16; TEMP 36.1; O2SAT 98
[2019-11-27] MEDS: Lactated Ringers 1,000 ML 80 ML IV (10:45)
--- NOTE | 2019-11-27 11:18 | BOWEL_PTH ---
PATIENT: Hair Nelson LOC: [facility] U#:[id number] AGE/SX: 63/M ROOM: RE11/27/[address]: Lisa Romero MD : 1955 BED: DIS: 11/27/2019 SPEC #: [id number] RECD: 11/27/19 12:46 STATUS: REFUGIO REQ #: [id number] EILEEN: 11/27/19 11:[address]: Lisa Romero DEPT: Surgical Specimen RECD BY: Silvia Aguirre ENTERED: 11/27/19 12:48 SP TYPE: Bowel OTHR DR: Liliya Schafer APRN Tissues: 1 - BIOPSY BOWEL 2 - BIOPSY BOWEL 3 - BIOPSY BOWEL 4 - BIOPSY BOWEL 5 - BIOPSY BOWEL Procedures: GROSS AND MICRO LEVEL 4 Comments: [id number]
[2019-11-27 12:15] VITALS: BP 127/83; PULSE 46; RESP 16; TEMP 36; O2SAT 100
== END 2019-11-27 12:30 | disposition home or self-care (01) ==
LOC: SUR 10:08
PROVIDERS: PCP Nurse Practitioner Family; Visit Provider Surgery
PROC: 0DJD8ZZ Inspection of Lower Intestinal Tract, Via Natural or Artificial Opening Endoscopic (ICD-10-PCS; CPT 45378; principal; 2019-11-27 11:30)
DX: Z12.11 Encounter for screening for malignant neoplasm of colon (principal); Z86.010 Personal history of colon polyps; E78.5 Hyperlipidemia, unspecified; K21.9 Gastro-esophageal reflux disease without esophagitis; D12.0 Benign neoplasm of cecum; D12.2 Benign neoplasm of ascending colon; D12.5 Benign neoplasm of sigmoid colon; K62.1 Rectal polyp
CPT/HCPCS: 45385; 45380; 88305

== ENCOUNTER 2019-11-27 16:23 | Emergency (ER) | payer BC, SELFPAY ==
[2019-11-27 16:35] VITALS: BP 137/70; PULSE 74; RESP 18; TEMP 37.2; O2SAT 99
--- NOTE | 2019-11-27 17:06 | W.ED.GENAD ---
Discharge Plan Disposition Patient Disposition: HOME Condition: Improving Discharge Details Chief Complaint: GenMedical Clinical Impression: Chill Primary Care Provider: Liliya Schafer ED Provider: Walker Baker Home Meds and New Rx's Prescriptions: No Action aspirin [Aspir-81] 81 MG tablet,delayed release (DR/EC) 81 mg PO DAILY RF: 0 sumatriptan succinate [Imitrex] 100 MG tablet 50 mg PO PRN Qty: 9 RF: 11 Medical Decision Making 63-year-old male who underwent uneventful colonoscopy with biopsy today. He prepped normally last night & had little to drink today. He got home felt chilled. He did not have a fever, no nausea or vomiting. He drank some Gatorade and now feels improved. Vital signs are normal, exam is reassuring. Do feel I must exclude free air and patient referred for x-ray. No evidence of free air or bowel dilatation. Patient remained stable and appropriate for outpatient management. He is reassured and will carry on with normal routine. HPI General Mode of arrival: ambulatory. Date/Time Provider Initiated Documentation: 11/27/19 16:25. Limitations to Documentation: no limitations. Information obtained by: patient. History of Present Illness 63 year old M presents to the emergency department with the chief complaint of 6 chilled at home after colonoscopy with biopsy today, now improved, described as moderate, Quality is described as dull and constant, Patient reports no radiation. Patient started experiencing this minute(s) and it has been now resolved. No relieving factors improve symptom(s), No exacerbating factors reported . Patient notes denies fever/chills, loss of appetite and nausea/vomiting. Patient did receive the following treatments prior to arrival, other (Improved with Gatorade) Related Data Home Medications Medication Instructions Recorded Confirmed aspirin [Aspir-81] 81 mg PO DAILY tab 04/17/13 11/27/19 sumatriptan succinate [Imitrex] 50 mg PO PRN #9 tab 07/21/17 11/27/19 Previous Rx's Medication Instructions Recorded sumatriptan succinate [Imitrex] 50 mg PO PRN #9 tab 07/21/17 Allergies Allergy/AdvReac Type Severity Reaction Status Date / Time No Known Allergies Allergy Verified 11/27/19 16:39 General Stated Complaint: GenMedical ANANTH: 3 Review of Systems Narrative: 6 systems reviewed and otherwise negative [facility] Medical History Backache, unspecified (09/05/02) Benign neoplasm of colon (05/12/04) tubular adenoma; not repeated 2007 due to insurance Esophageal reflux (02/05/02) Hyperlipidemia (03/07/94) Irritable bowel syndrome (03/07/94) Migraine (03/07/1969) Sensorineural hearing loss of both ears Surgical History History of colonoscopy Family History Mother Neoplasm of brain tumor Father No problems noted. Sister No problems noted. Social History Smoking/Tobacco Use Status: Never Alcohol Intake: current Alcohol Intake frequency: holidays/special occasions only Drug use: Never Substance use type: does not use Household members: spouse Housing: house Number of Children: 2 current occupation: self-contractor What type of physical activity do you participate in: regular exercise Frequency: daily Seatbelt use: always Helmet use: Yes Drive intox or ride w/intox ems driver: No Water heater temp set <120 deg: Yes Working smoke detector in home: Yes Fire extinguisher in home: Yes Carbon monox detector in home: Yes Do you feel safe at home: Yes Do you feel safe in your relationship?: Yes Exam Narrative Exam Narrative: GEN: awake, alert, oriented 3. Pleasant, well groomed, interactive. HEAD: Normocephalic, atraumatic EYES: PERRL, EOMI NECK: Full ROM, no VIANNEY, no menigismus CHEST/RESP: Nontender, clear to auscultation bilateral, no wheeze/rhonchi/rales CARDIOVASCULAR: RRR, no murmur, rub walt. 2+ Rad pulse bilateral ABDOMEN: Soft, nontender, no mass. +Bowel sounds EXT: Full ROM, no edema, no rash Neuro: Grossly normal neurologic exam, conversant, interactive. Psych: Speech fluent, thoughts congruent, affect normal Course Vital Signs Vital signs: Vital Signs Temperature 37.2 C 11/27/19 16:35 Pulse 74 11/27/19 16:35 Respiratory Rate 18 11/27/19 16:35 Blood Pressure 137/70 11/27/19 16:35 Pulse Oximetry 99 11/27/19 16:35 Temperature 37.2 C 11/27/19 16:35 Temperature Source Temporal Artery Scan 11/27/19 16:35 Pulse 74 11/27/19 16:35 Respiratory Rate 18 11/27/19 16:35 Respiratory Effort Non-Labored 11/27/19 16:39 Blood Pressure 137/70 11/27/19 16:35 Blood Pressure Position Sitting 11/27/19 16:35 Pulse Oximetry 99 11/27/19 16:35 Oxygen Delivery Method Room Air 11/27/19 16:35 Oxygen Flow Rate 0 11/27/19 16:35
--- NOTE | 2019-11-27 17:46 | DI.RAD_ITS ---
EXAM: 2D digital imaging was performed. CLINICAL HISTORY: chilled after colonoscopy. COMPARISON: No exams were available for comparison TECHNIQUE: Supine and uprightSupine and Lateral views of the abdomen was performed. FINDINGS: LUNG BASES: Clear. BOWEL GAS PATTERN: Nondistended. FREE AIR: None. CALCIFICATIONS: No radiopaque calcifications. OSSEOUS STRUCTURES: There is a left convex scoliosis of the lumbar spine. Moderately severe degenera tive changes are seen in the lumbar spine and thoracic spine. OTHER FINDINGS: None. IMPRESSION: No evidence of an acute abdomen. DATA REPOSITORY: RADIATION DOSE DELIVERED:
--- NOTE | 2019-11-27 17:54 | DI.VRAD_ITS ---
PROCEDURE INFORMATION: Exam: XR Abdomen, 2 Views Exam date and time: 11/27/2019 5:46 PM Age: 63 years old Clinical indication: Other: Chilled after colonoscopy TECHNIQUE: Imaging protocol: XR of the abdomen. Views: 2 Views. COMPARISON: CT renal colic wo 09/05/2018 8:58 AM FINDINGS: Gastrointestinal tract: Normal. No bowel dilation. Intraperitoneal space: Normal. No free air. Bones/joints: Scoliosis and degenerative changes in the spine. IMPRESSION: No acute finding. Dictated and Authenticated by: Noble Alonzo MD. Ordering:HARJEET Cardoso MD
[2019-11-27 18:06] VITALS: RESP 12
== END 2019-11-27 18:08 | disposition home or self-care (01) ==
PROVIDERS: Emergency Provider Emergency Medicine; PCP Nurse Practitioner Family
DX: R68.83 Chills (without fever) (principal); Y84.8 Other medical procedures as the cause of abnormal reaction of the patient, or of later complication, without mention of misadventure at the time of the procedure
CPT/HCPCS: 99283; 74019

== ENCOUNTER 2021-03-28 01:34 | Outpatient (CLI) | payer BC, SELFPAY ==
[2021-03-28 11:23] LABS: Source Nasal/Nares
[2021-03-28 14:01] LABS: COVID-19 PCR Negative (Negative)
== END 2021-03-28 01:35 | disposition home or self-care (01) ==
LOC: LBO 01:35
PROVIDERS: PCP Nurse Practitioner Family; Visit Provider Surgery
DX: Z20.822 Contact with and (suspected) exposure to COVID-19 (principal)
CPT/HCPCS: 87635

== ENCOUNTER 2021-03-31 07:31 | Day surgery (SDC) | payer BC, SELFPAY ==
--- NOTE | 2021-03-31 06:44 | W.COLOREPORT ---
Colonoscopy Report Date of procedure: 03/31/21 Pre-op diagnosis general: Colon Cancer Screening, Hx of colon polyps Post-op diagnosis procedure note: other (polyps) Procedure: Colonoscopy with polypectomy Surgeon: Lisa Romero Anesthesia Type: General:No Airway (Gio Sullivan, REINA) Estimated blood loss (mL): 3 Pathology: other (Cecal polyp, ascending polyp, transverse polyp x2, polyp at 20 cm and rectal polyp x2) Complications: None Disposition: same day Indications: The patient is here for Colonoscopy pre-op. His last screening was in 2019, which was remarkable for hyperplastic polyps x 2, Tubular adenomatous polyps x 4 and 1 x tubular adenoma with high grade dysplasia with recommended f/u in 1 year. He has no family history of colon cancer. He has not had any bowel habit changes. -Discussed colonoscopy bowel prep as well as the procedure. Discussed possible complications of the procedure to include bleeding, pain, perforation, missed small lesion/polyp, sore throat, aspiration and adverse reaction to the medications. Questions were answered to patient?s satisfaction. No guarantees were implied or given. Prep: Miralax/Dulcolax Procedure Start Time: 08:45 Procedure End Time: 09:27 Retraction Time: 26 minutes Findings: multiple sessile polyps small area of regrowth at 20 cm removed with a hot snare Procedure Description: After informed consent was obtained the patient was taken to the procedure room and placed in a left decubitous position. Monitors were applied and a time out was done. The patients name, date of , procedure, allergies to medications and metal in their body was reviewed. The patient was then sedated. Once sedated and comfortable a rectal exam was done. External exam was normal. Internal exam revealed a normal sphincter tone and no palpable masses. The prostate felt smooth. The scope was then introduced and retro-flexed. No internal hemorrhoids, polyps or masses were identified on retro-flexion. The scope was then advanced to the cecum without difficulty. The ileocecal vlave and appendiceal orifice were identified. The prep was adequate. The scope was then slowly retracted over 26 minutes back into the rectum. Polyps were removed with hot snare in the cecum, transverse colon and at 20 cm and with cold forceps in the ascending colon, transverse colon and rectum. There was no diverticulosis noted. The scope was removed and the patient was woken up and taken back to Same day surgery in stable condition. The patient tolerated the procedure well and there were no immediate complications. Follow up: The patient should follow up in 3 years, most likley, unless they develop changes in bowel habits or other new gastrointestinal complaints.
--- NOTE | 2021-03-31 06:46 | W.PM.DSUDISC ---
Discharge Plan Disposition Patient Disposition: HOME Condition: Good Discharge Details Reason For Visit: Colonoscopy Attending Provider: Lisa Romero Primary Care Provider: Liliya Schafer Home Meds and New Rx's Prescriptions: Continued aspirin [Aspir-81] 81 MG tablet,delayed release (DR/EC) 81 mg PO DAILY RF: 0 Discontinued bisacodyl [Dulcolax (bisacodyl)] 5 mg tablet,delayed release (DR/EC) 5 mg PO ONCE Qty: 4 RF: 0 polyethylene glycol 3350 17 gram/dose powder 17 g PO ONCE Qty: 238 RF: 0 Discharge Instructions Additional Instructions: Findings: 7 small polyps Follow up: will depend on final pathology results. Please call if you develop: fevers >101.5 Nausea or Vomiting Abdominal pain that is not transient Rectal bleeding that is more then a tbsp A hard abdomen and inability to pass gas DAY SURGERY UNIT POST ENDOSCOPY INSTRUCTIONS Instructions for everyone who is given Anesthesia: For your safety, please do the following for the next 24 Hours: a. Do not drive or operate dangerous equipment b. Do not drink alcohol beverages or use any recreational drugs for the first 24 hours or while taking pain medications. The medications in your body may have a reaction that can be dangerous. c. Do not make any important decisions or sign any important papers 1. Generally there are no restrictions on your activity after a day or so has gone by, but you may feel a bit fatigued for a few days. 2. After you arrive home you may have a light meal and return to a normal diet as you can tolerate it without feeling sick to your stomach. 3. After surgery, you may feel pain or discomfort. This should be only transient, but if it persists please contact your doctor. 4. If there are any questions regarding the findings of your procedure, please feel free to contact your doctor. 6. If you are unable to contact your doctor with a problem, contact the hospital at [phone]. 7. Continue all your regular medications unless directed otherwise. I understand the above instructions and have no questions. Signature of Patient or Responsible Adult Escort Date/Time Name of Responsible Adult Escort Signature of Nurse Date/Time Activity:: Activity as Tolerated Diet:: As Tolerated Discharge Orders Discharge Orders: Discharge Order (Routine); Ordered 03/31/21 Ordered By: Lisa Romero
[2021-03-31 07:50] VITALS: BP 158/88; PULSE 51; RESP 16; TEMP 35.9; O2SAT 97
--- NOTE | 2021-03-31 08:12 | W.ANESPRE ---
General Info Date of Service Date Performed: 03/31/21 Height: 6 ft 1 in Weight: 80.4 kg Body Mass Index (BMI): 23.3 Surgical Procedure: Operation Date: 03/31/21 09:20 Proposed Procedures Side Surgeon p Colonoscopy Lisa Romero MD Meds Allergies and Home Medications Allergies Allergy/AdvReac Type Severity Reaction Status Date / Time No Known Allergies Allergy Verified 03/31/21 07:48 Home Medication Medication Instructions Recorded aspirin [Aspir-81] 81 mg PO DAILY tab 04/17/13 bisacodyl 5 mg tablet,delayed 5 mg PO ONCE #4 tab 03/20/21 release polyethylene glycol 3350 17 17 g PO ONCE #238 g 03/20/21 gram/dose oral powder Current Visit Medications: Current Medications Generic Name Dose Route Start Last Admin Trade Name Freq PRN Reason Stop Dose Admin Hyoscyamine Sulfate 0.125 mg 03/31/21 06:47 Hyoscyamine 0.125 Mg Sl/Oral/Chew SL DIRECTED PRN Ondansetron HCl 4 mg 03/31/21 06:47 Ondansetron 4 Mg/2 Ml Vial IVP Q4H PRN PRN Nausea / Vomiting PFSH Active Problems Active Problems: Problem Status Onset Code Screening for colon cancer Z12.11 High grade dysplasia in colonic adenoma D12.6 Hyperplastic colon polyp K63.5 Tubular adenoma of colon D12.6 Irritable bowel syndrome 03/07/94 K58.9 Esophageal reflux 02/05/02 K21.9 Benign neoplasm of colon 05/12/04 D12.6 Medical History Medical History Backache, unspecified (09/05/02) BPH (benign prostatic hyperplasia) Frequency, sensation of incomplete bladder emptying 12/2017: discussed Flomax; pt would like to wait Hyperlipidemia (03/07/94) Migraine (03/07/1969) Sensorineural hearing loss of both ears Surgical History Surgical History History of colonoscopy Tobacco Smoking/Tobacco Use Status: Never Alcohol Alcohol Intake: current Alcohol intake frequency: a few times a week Alcohol type: beer and other Substance Use Substance use: Never Substance use type: does not use Vital Signs and Lab Results Vital Signs Most Recent Vital Signs in EMR: Most Recent Vital Signs Temp Pulse Resp BP Pulse Ox 35.9 C L 51 L 16 158/88 H 97 03/31/21 07:50 03/31/21 07:50 03/31/21 07:50 03/31/21 07:50 03/31/21 07:50 Lab Results Blood Type / Crossmatch: No Data to Display Complete Blood Count: No Data to Display Complete Metabolic Panel: No Data to Display Liver Function Panel: No Data to Display Coagulation Panel: No Data to Display Cardiac Panel: No Data to Display Arterial Blood Gas: No Data to Display Venous Blood Gas: No Data to Display Pancreas Panel: No Data to Display Thyroid Panel: No Data to Display Infectious Disease: Coronavirus (COVID-19)(PCR) Negative (Negative) 03/28/21 08:55 03/28/21 Coronavirus 2019 Source Nasal/Nares 03/28/21 08:55 03/28/21 Blood Cultures: No Data to Display Toxicology Panel: No Data to Display Anesthesia Assessment and Plan Anesthesia History Personal History: No History of Anesthesia Complications Family History: No Family History of Anesthesia Complications Exercise Tolerance Exercise Tolerance: Metabolic Equivalents>4 Pertinent Negatives Pertinent Negatives: No Symptoms of GERD, No Major Cardiovascular Symptoms or Complaints, No Major Pulmonary Symptoms or Complaints and No History of CVA/TIA Cardiac & Pulmonary Exam Cardiac Exam: Normal S1/S2 Heart Sounds Pulmonary Exam: Clear Bilateral Breath Sounds Implantable Cardiac Device Does patient have a Pacemaker or an ICD?: No Airway Exam Known Difficult Airway: No Mallampati Class: 3 Mouth Opening: Normal (> 3cm) Thyromental Distance: Greater than 3 cm Neck Range of Motion: Full ROM Neck Circumference: Normal Teeth Condition: Normal Dentition Airway Comments: #21 posted prosthetic tooth ASA Classification ASA Score: ASA 2 Emergency Case?: No NPO Status NPO Status: NPO Clears >2 hours, Solids >8 hours Anesthesia Plan Resuscitation Status: Full Code Anesthesia Technique: General Anesthesia Airway Planned: Natural Airway Monitors Used: Standard Monitors
[2021-03-31 08:30] VITALS: BMI 23.3
[2021-03-31] MEDS: Lactated Ringers 1,000 ML 80 ML IV (08:30)
--- NOTE | 2021-03-31 08:55 | BOWEL_PTH ---
PATIENT: Hair Nelson LOC: [facility] U#:[id number] AGE/SX: 65/M ROOM: RE03/31/[address]: Lisa Romero MD : 1955 BED: DIS: 03/31/2021 SPEC #: [id number] RECD: 03/31/21 12:20 STATUS: REFUGIO RE #: [id number] EILEEN: 03/31/21 08:[address]: Lisa Romero DEPT: Surgical Specimen RECD BY: Silvia Aguirre ENTERED: 03/31/21 12:23 SP TYPE: Bowel OTHR DR: Liliya Schafer, HONEY Tissues: 1 - BIOPSY BOWEL 2 - BIOPSY BOWEL 3 - BIOPSY BOWEL 4 - BIOPSY BOWEL 5 - BIOPSY BOWEL Procedures: GROSS AND MICRO LEVEL 4 Comments: [id number]
[2021-03-31 09:38] VITALS: BP 152/91; PULSE 65; RESP 18; TEMP 36; O2SAT 95
--- NOTE | 2021-03-31 09:39 | W.ANESPOSTOP ---
Postoperative Evaluation Date, Time and Location Date Performed: 03/31/21 Time Performed: 09:39 Patient Location: Day Surgery Unit Vital Signs Most Recent Imported Vital Signs: Most Recent Vital Signs Temp Pulse Resp BP Pulse Ox 35.9 C L 51 L 16 158/88 H 97 03/31/21 07:50 03/31/21 07:50 03/31/21 07:50 03/31/21 07:50 03/31/21 07:50 Most Recent Manually Entered Vital Signs: Adult Blood Pressure: 152/91 Heart Rate: 65 Respirations: 12 Oxygen Saturation (%): 98 Temperature (C): 36.3 C Pain Score (0-10 Scale): 0 Pain Score Most Recent Pain Score: Most Recent Pain Score Pain Level 0 03/31/21 07:50 Assessment Mental Status: Awake (Alert & Oriented to Patient Baseline) Airway and Respiratory Function: Patent airway with normal (patient baseline) respiratory exam Cardiovascular Function: Hemodynamically Stable Hydration Status: Adequately Hydrated Nausea & Vomiting: No Nausea or Vomiting Pain: Pt. Denies Any Pain Peripheral Nerve Block: Patient did not receive a nerve block
[2021-03-31 09:40] VITALS: BP 152/91; PULSE 65; RESP 12; TEMPC 36.3; O2SAT 98
[2021-03-31 10:08] VITALS: BP 143/79; PULSE 54; RESP 18; TEMP 36.2
== END 2021-03-31 10:36 | disposition home or self-care (01) ==
LOC: SUR 07:31
PROVIDERS: PCP Nurse Practitioner Family; Visit Provider Surgery
PROC: 0DJD8ZZ Inspection of Lower Intestinal Tract, Via Natural or Artificial Opening Endoscopic (ICD-10-PCS; CPT 45378; principal; 2021-03-31 09:15)
DX: Z12.11 Encounter for screening for malignant neoplasm of colon (principal); D12.2 Benign neoplasm of ascending colon; Z86.010 Personal history of colon polyps; K62.1 Rectal polyp; E78.5 Hyperlipidemia, unspecified; D12.3 Benign neoplasm of transverse colon; D12.5 Benign neoplasm of sigmoid colon
CPT/HCPCS: 45385; 45380; 88305; J2001

== ENCOUNTER 2022-05-21 12:56 | Emergency (ER) | payer MEDICARE, BC, SELFPAY ==
[2022-05-21 13:03] VITALS: BP 167/84; PULSE 58; RESP 15; TEMP 37.1; O2SAT 98
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
[2022-05-21] MEDS: Silver sulfaDIAZINE 1% 25 GM TUBE TP (13:32)
== END 2022-05-21 13:44 | disposition home or self-care (01) ==
PROVIDERS: Emergency Provider Emergency Medicine; PCP Nurse Practitioner Family
DX: T23.262A Burn of second degree of back of left hand, initial encounter (principal); T31.0 Burns involving less than 10% of body surface; X10.1XXA Contact with hot food, initial encounter
CPT/HCPCS: 99283; 99284

== ENCOUNTER 2022-09-14 09:53 | Emergency (ER) | payer MEDICARE, BC, SELFPAY ==
[2022-09-14] VITALS (22 sets, daily range): BP systolic 113–137; BP diastolic 53–65; PULSE 35–47; RESP 9–18; TEMP 36.4–36.6; O2SAT 79–100
--- NOTE | 2022-09-14 09:45 | DI.CT_ITS ---
Exam(s) CT ABDOMEN PELVIS WO EXAM: CT ABDOMEN PELVIS WO CLINICAL HISTORY: left flank pain. TECHNIQUE: Imaging Protocol: Axial computed tomography images with coronal and sagittal reformatted images were created and reviewed CONTRAST MATERIAL: Intravenous: none Oral: None COMPARISON: CT CT renal colic wo from 09/05/2018 FINDINGS: VISUALIZED LUNG BASES: No nodules nor pleural effusions evident. ABDOMEN: There is no ascites. LIVER: There is a cyst in the left hepatic lobe which measures 3.2 x 2.3 cm, unchanged from 2019. Th ere are no new additional focal hepatic findings on this noninfused study. GALLBLADDER/BILIARY: No obvious gallbladder pathology. CBD is not dilated. PANCREAS: No evidence of pancreatic mass nor dilatation of the pancreatic duct. SPLEEN: Spleen is not enlarged. No obvious intrasplenic lesions. ADRENALS: There are no significant adrenal masses. KIDNEYS:Benign appearing cysts in the right kidney measuring 2.7 x 2.5 cm is again noted in the right kidney. No solid renal masses evident. Punctate calculi seen in both kidneys, best evident on the coronal images. Mild left-sided hydronephrosis is noted. There is a calculus in the left ureter yaya suring approximately 4 mm. This is at L3 level. There are no calculi seen lower down in the ureter nor in the urinary bladder.. ABDOMINAL AORTA: Abdominal aorta is not enlarged. LYMPH NODES: There is no retroperitoneal nor paraaortic adenopathy. ABDOMINAL WALL: No evidence of significant anterior abdominal wall nor inguinal hernia. GI: There is no evidence of bowel obstruction, free air, nor abscess. PELVIS: LYMPH NODES: There is no intrapelvic nor inguinal adenopathy. GI: No evidence of appendicitis.There are few sigmoid diverticuli. No obvious diverticulitis. URINARY BLADDER: No calculi nor obvious masses evident REPRODUCTIVE: Mildly enlarged prostate. OSSEOUS: No significant osseous lesions. Chronic degenerative disc disease. Multilevel. No fractures evident. No listhesis. IMPRESSION: 1. There is an obstructing 4 millimeter calculus in the mid left ureter. Mild-moderate dilatation ab ove this level. 2. There are smaller nonobstructive calculi in both kidneys noted 3. Other findings as above. RADIATION DOSE DELIVERED: 873.1mGy.cm Total DLP DATA REPOSITORY: All CT scans at this facility are submitted to the National Radiology Data Registry (NRDR) Dose Index Registry (DIR) with the [employer] (A[employer]). RADIATION OPTIMIZATION: All CT scans at this facility use at least one of these dose optimization te chniques: automated exposure control; mA and/or kV adjustment per patient size (includes targeted exa ms where dose is matched to clinical indication); or iterative reconstruction.
--- NOTE | 2022-09-14 10:00 | RT.EKG_ITS ---
APPROVED REPORT Exam: Resting ECG Reason for Exam: epigastric pain Patient Location: E HR:39 bpm ECG Measurements Heart Rate 39 AXIS MA 170 P 42 QRSd 95 QRS 23 QT 485 T 49 QTc 390 Conclusion Sinus bradycardia...rate< 60 Consider left ventricular hypertrophy...(S V1+R V5/V6) >3.50mV No major chANGE VS 2004, RATE 50'S THEN
--- NOTE | 2022-09-14 10:07 | ED.GENADUL_ITS ---
Discharge Plan Disposition Patient Disposition: Home Condition: Improving Discharge Details Clinical Impression: Kidney stone on left side Primary Care Provider: Liliya Schafer ED Provider: Mandie Matias Home Meds and New Rx's Prescriptions: New ondansetron 8 mg tablet,disintegrating 8 mg PO Q8H PRN (Reason: nausea and vomiting) Qty: 15 0RF oxycodone-acetaminophen [Percocet] 5-325 mg tablet 1 tab PO Q6H PRN (Reason: pain) Qty: 20 0RF Discharge Instructions Instructions: Kidney Stones (ED) Additional Instructions: Ibuprofen 600 mg every 6 hours and Percocet 1-2 tabs every 6 hours as needed for pain. Zofran as needed for nausea. Drink plenty of fluids. Dr. Fall's office will call you by noon tomorrow for a follow-up appointment. Please call his office if you do not hear from him by tomorrow at noon. Return to ED for fever of 100.4 or above, protracted vomiting, any other concerns. Strain your urine and bring the stone to urology. Medical Decision Making Of note, the patient states that his heart rate does run slow at times. He said when he was training with air packs they could never get his heart rate up high enough and gave up. [id number] Both patient and his were updated on his test results. Dr. Fall will call tomorrow for follow-up appointment. He has Zofran, ibuprofen, and Percocet as needed for pain. He will drink plenty of fluids and return for fever or uncontrolled pain. Medical Records Medical records reviewed: Yes I reviewed the patient's medical records. Lab Data Lab results reviewed: Yes I reviewed the patient's lab results. Lab results narrative: Patient's labs are normal except for a BUN and creatinine of 20 and 1.4, glucose of 156, calcium 8.1, and alk phos 118. ECG Data Attestation: I personally reviewed and interpreted this ECG (s) as follows: (Sinus bradycardia at 40, LVH) HPI General Date/Time Provider Initiated Documentation: 09/14/22 09:53 . HPI Narrative: This 66-year-old male patient presents with a chief complaint of left flank pain that woke him from sleep at 4 AM. He states that he initially thought that it was his chronic lower back pain but then was quite sure that it was different. It was sharp in nature and felt like a prior kidney stone. Patient states that his blood pressure runs high sometimes but he is not on medication for this. There is no history of AAA or family history of AAA. The patient did have nausea and vomiting with this. The pain is colicky in nature. He does not radiate into his belly but his belly feels a little bit sore after vomiting. He took an oxycodone at home but then vomited it. EMS gave him 4 mg of Zofran and 200 mcg of fentanyl in the field and the patient states he feels much better at this time. He denies chest pain, difficulty breathing, fever, or diarrhea. Related Data Home Medications Medication Instructions Recorded Confirmed ondansetron 8 mg disintegrating 8 mg PO Q8H PRN nausea and 09/14/22 tablet vomiting #15 tabs oxycodone-acetaminophen 5 mg-325 1 tab PO Q6H PRN pain #20 tabs 09/14/22 mg tablet (Percocet) Previous Rx's Medication Instructions Recorded ondansetron 8 mg disintegrating 8 mg PO Q8H PRN nausea and 09/14/22 tablet vomiting #15 tabs oxycodone-acetaminophen 5 mg-325 1 tab PO Q6H PRN pain #20 tabs 09/14/22 mg tablet (Percocet) Allergies Allergy/AdvReac Type Severity Reaction Status Date / Time No Known Allergies Allergy Verified 09/14/22 10:12 General ANANTH: 3 Review of Systems Constitutional Constitutional: Denies chills, Denies fever(s), Denies headache(s) and Denies weakness Eyes Eyes: Denies diplopia and Reports other (no redness) ENT Ears, Nose, Mouth, and Throat: Denies otalgia, Denies headache(s), Denies nasal congestion, Denies nasal discharge, Denies neck pain and Denies sore throat Cardiovascular Cardiovascular: Denies chest pain, Denies palpitations and Denies dyspnea Respiratory Respiratory: Denies cough and Denies dyspnea Gastrointestinal Gastrointestinal: Reports abdominal pain, Denies diarrhea, Reports nausea and Reports vomiting Genitourinary Genitourinary: Denies difficulty urinating, Denies dysuria and Reports other (Has left flank pain) Musculoskeletal Musculoskeletal: Denies myalgias, Denies muscle weakness, Denies neck pain, Denies numbness and Reports other (edema) Integumentary/Breasts Skin/Breast: Denies change in pigmentation and Denies rash Neurologic Neurologic: Denies headache(s), Denies numbness and Denies weakness Endocrine Endocrine: Denies palpitations PFSH All Active Problems (Updated 09/14/22 @ 11:33 by Mandie Matias MD) Kidney stone on left side (Acute) Sessile colonic polyp (Acute) Hyperplastic colon polyp (Acute) Tubular adenoma of colon (Acute) Irritable bowel syndrome (Chronic 03/07/94) Esophageal reflux (Chronic 02/05/02) Medical History Backache, unspecified (09/05/02) Benign neoplasm of colon (05/12/04) tubular adenoma; not repeated 2007 due to insurance BPH (benign prostatic hyperplasia) Frequency, sensation of incomplete bladder emptying 12/2017: discussed Flomax; pt would like to wait High grade dysplasia in colonic adenoma Hyperlipidemia (03/07/94) Migraine (03/07/1969) Screening for colon cancer Sensorineural hearing loss of both ears Surgical History History of colonoscopy (~03/2021) Family History Mother Neoplasm of brain tumor Father No problems noted. Sister No problems noted. Social History Smoking/Tobacco Use Status: Never Smoking risk assessment performed?: Yes Alcohol Intake: current Alcohol Intake frequency: a few times a week Alcohol type: beer and other Drug use: Never Substance use type: does not use Household members: spouse Housing: house Number of Children: 2 current occupation: self-contractor What type of physical activity do you participate in: regular exercise Frequency: daily Seatbelt use: always Helmet use: Yes Drive intox or ride w/intox city driver: No Water heater temp set <120 deg: Yes Working smoke detector in home: Yes Fire extinguisher in home: Yes Carbon monox detector in home: Yes Do you feel safe at home: Yes Do you feel safe in your relationship?: Yes Exam Const General: no acute distress, well developed, well groomed and not in acute distress Nutritional Appearance: well nourished Orientation: alert and oriented x3 [facility] Head: normocephalic and atraumatic Ears: external ears normal Mouth: oropharynx normal and moist mucous membranes Throat: posterior oropharynx normal Eyes Conjunctivae: conjunctivae normal Neck Neck: full ROM and supple Chest Chest: normal inspection of the chest Resp Effort & Inspection: normal respiratory effort Auscultation: clear to auscultation bilaterally Cardio Rate: regular rate Rhythm: regular rhythm Heart Sounds: no murmurs and no rubs GI Inspection: normal to inspection Palpation: soft, nontender and other (non distended, no guarding or rebound, no pulsating masses, slim build) Auscultation: normal bowel sounds Skin General skin exam: no rashes or lesions noted and other (pink, warm, dry) Neuro General: patient alert, patient awake and patient oriented x3 Speech: speech normal Motor: other (BEATTY) Sensory Exam: no sensory deficits noted Extrem General: normal to inspection, full ROM and pedal edema present Psych Mental Status: mental status grossly normal Speech and Movement: speech and movement normal Affect: normal affect
[2022-09-14] MEDS: Normal Saline 1,000 ML 1000 ML IV (10:15)
[2022-09-14 10:19] LABS: HCT 39.6 % (40.0-50.0); HGB 13.4 g/dL (13.5-17.5); MCH 32.1 pg (27.0-33.0); MCHC 33.8 % (32.0-36.0); MCV 95 fL (80-95); MPV 9.5 fL (8.0-11.0); Platelet Count 242 10^3/uL (130-400); RBC 4.18 10^6/uL (4.36-5.78); RDW 12.1 % (11.8-14.1); RDW-SD 42.2 fL; WBC 8.61 10^3/uL (4.4-10.8)
[2022-09-14] MEDS: Ketorolac 15 MG/ML VIAL IVP (10:37)
[2022-09-14] MEDS: HYDROmorphone 2 MG/ML SYR 1 MG IVP (10:37)
[2022-09-14] MEDS: Ondansetron 4 MG/2 ML VIAL IVP (10:37)
[2022-09-14 10:52] LABS: ALT 28 U/L (16-63); AST 19 U/L (15-37); Albumin 3.6 g/dL (3.4-5.0); Alkaline Phosphatase 118 U/L (46-116); Anion Gap 9.5 mmol/L (3-11); BUN 20 mg/dL (7-18); Bilirubin, Total 0.4 mg/dL (0.2-1.0); CO2 25.5 mmol/L (21.0-32.0); CREATININE 1.4 mg/dL (0.70-1.30); Calcium 8.1 mg/dL (8.5-10.1); Chloride 107 mmol/L (98-107); Estimated GFR 54.75 (mL/min/1.73m2); Glucose 156 mg/dL (74-106); Potassium 4.2 mmol/L (3.5-5.1); Sodium 142 mmol/L (136-145); Total Protein 6.6 g/dL (6.4-8.2)
[2022-09-14 11:31] LABS: Bilirubin Negative (Negative); Blood Trace-intact (Negative); Clarity Clear (Clear); Glucose Negative (Negative); Ketones Negative (Negative); Leukocyte Esterase Negative (Negative); Nitrite Negative (Negative); Urobilinogen 0.2 mg/dL (Up to 0.2)
[2022-09-14 11:36] LABS: Bacteria Negative HPF (Negative); C & S Indicated? No; Casts 0-2 Hyaline LPF (Negative); Crystals Negative HPF (Negative); Epithelial Cells Rare HPF (Negative); Mucus Negative (Negative); RBC 0-2 HPF (0-2); WBC Negative HPF (0-5)
--- NOTE | 2022-09-14 11:45 | NUR.NOTE ---
Nursing Note: Referral faxed to [facility] Urology for multiple kidney stones, call by noon tomorrow for appt.
--- NOTE | 2022-09-14 12:13 | ED.GENADUL_ITS ---
Discharge Plan Disposition Patient Disposition: Home Condition: Improving Discharge Details Clinical Impression: Kidney stone on left side Primary Care Provider: Liliya Schafer ED Provider: Mandie Matias Home Meds and New Rx's Prescriptions: New ondansetron 8 mg tablet,disintegrating 8 mg PO Q8H PRN (Reason: nausea and vomiting) Qty: 15 0RF oxycodone-acetaminophen [Percocet] 5-325 mg tablet 1 tab PO Q6H PRN (Reason: pain) Qty: 20 0RF ondansetron 8 mg tablet,disintegrating 8 mg PO Q8H PRN (Reason: nausea and vomiting) Qty: 15 0RF oxycodone-acetaminophen [Percocet] 5-325 mg tablet 1 tab PO Q6H PRN (Reason: pain) Qty: 20 0RF Discharge Instructions Instructions: Kidney Stones (ED) Additional Instructions: Ibuprofen 600 mg every 6 hours and Percocet 1-2 tabs every 6 hours as needed for pain. Zofran as needed for nausea. Drink plenty of fluids. Dr. Fall's office will call you by noon tomorrow for a follow-up appointment. Please call his office if you do not hear from him by tomorrow at noon. Return to ED for fever of 100.4 or above, protracted vomiting, any other concerns. Strain your urine and bring the stone to urology. Medical Decision Making Please note the patient's initial prescriptions went to [facility] in [place] which is permanently closed. I did send new prescriptions to [facility] at his request. I am unable to cancel the prescriptions that went to [facility], but again, this is permanently closed and they will not be filled. HPI General Date/Time Provider Initiated Documentation: 09/14/22 09:53 . HPI Narrative: This 66-year-old male patient awoke at 4 AM this morning with left flank pain. The patient states he has a history of lower back pain and initially thought it might be this but then realized that it was different and worse. He has had kidney stones in the past and states that it felt like this. Related Data Home Medications Medication Instructions Recorded Confirmed ondansetron 8 mg disintegrating 8 mg PO Q8H PRN nausea and 09/14/22 tablet vomiting #15 tabs ondansetron 8 mg disintegrating 8 mg PO Q8H PRN nausea and 09/14/22 tablet vomiting #15 tabs oxycodone-acetaminophen 5 mg-325 1 tab PO Q6H PRN pain #20 tabs 09/14/22 mg tablet (Percocet) oxycodone-acetaminophen 5 mg-325 1 tab PO Q6H PRN pain #20 tabs 09/14/22 mg tablet (Percocet) Previous Rx's Medication Instructions Recorded ondansetron 8 mg disintegrating 8 mg PO Q8H PRN nausea and 09/14/22 tablet vomiting #15 tabs ondansetron 8 mg disintegrating 8 mg PO Q8H PRN nausea and 09/14/22 tablet vomiting #15 tabs oxycodone-acetaminophen 5 mg-325 1 tab PO Q6H PRN pain #20 tabs 09/14/22 mg tablet (Percocet) oxycodone-acetaminophen 5 mg-325 1 tab PO Q6H PRN pain #20 tabs 09/14/22 mg tablet (Percocet) Allergies Allergy/AdvReac Type Severity Reaction Status Date / Time No Known Allergies Allergy Verified 09/14/22 10:12 General Stated Complaint: Nk/Back Pain ANANTH: 3 PFSH All Active Problems (Updated 09/14/22 @ 11:33 by Mandie Matias MD) Kidney stone on left side (Acute) Sessile colonic polyp (Acute) Hyperplastic colon polyp (Acute) Tubular adenoma of colon (Acute) Irritable bowel syndrome (Chronic 03/07/94) Esophageal reflux (Chronic 02/05/02) Medical History Backache, unspecified (09/05/02) Benign neoplasm of colon (05/12/04) tubular adenoma; not repeated 2007 due to insurance BPH (benign prostatic hyperplasia) Frequency, sensation of incomplete bladder emptying 12/2017: discussed Flomax; pt would like to wait High grade dysplasia in colonic adenoma Hyperlipidemia (03/07/94) Migraine (03/07/1969) Screening for colon cancer Sensorineural hearing loss of both ears Surgical History History of colonoscopy (~03/2021) Family History Mother Neoplasm of brain tumor Father No problems noted. Sister No problems noted. Social History Smoking/Tobacco Use Status: Never Smoking risk assessment performed?: Yes Alcohol Intake: current Alcohol Intake frequency: a few times a week Alcohol type: beer and other Drug use: Never Substance use type: does not use Household members: spouse Housing: house Number of Children: 2 current occupation: self-contractor What type of physical activity do you participate in: regular exercise Frequency: daily Seatbelt use: always Helmet use: Yes Drive intox or ride w/intox hazmat cdl driver: No Water heater temp set <120 deg: Yes Working smoke detector in home: Yes Fire extinguisher in home: Yes Carbon monox detector in home: Yes Do you feel safe at home: Yes Do you feel safe in your relationship?: Yes Course Vital Signs Vital signs: Vital Signs Respiratory Rate 13 09/14/22 09:59 Pulse Oximetry 98 09/14/22 09:59 Temperature 36.6 C 09/14/22 12:10 Temperature Source Oral 09/14/22 10:07 Pulse 45 L 09/14/22 12:10 Pulse 41 L 09/14/22 11:50 Respiratory Rate 18 09/14/22 12:10 Respiratory Effort Normal 09/14/22 10:41 Blood Pressure 119/59 L 09/14/22 12:10 Blood Pressure Mean 74 09/14/22 11:46 Blood Pressure Position Supine 09/14/22 10:07 Pulse Oximetry 96 09/14/22 12:10 Oxygen Delivery Method Room Air 09/14/22 10:07 Oxygen Flow Rate 0 09/14/22 10:07 Pain Level 3 09/14/22 10:07 Lab/Test Results Lab/Test Results: Laboratory Tests Range/Units 09/14/22 09/14/22 09/14/22 09:58 10:15 11:21 WBC (4.4-10.8) 10^3/uL 8.61 RBC (4.36-5.78) 10^6/uL 4.18 L Hgb (13.5-17.5) g/dL 13.4 L Hct (40.0-50.0) % 39.6 L MCV (80-95) fL 95 MCH (27.0-33.0) pg 32.1 MCHC (32.0-36.0) % 33.8 RDW (11.8-14.1) % 12.1 Plt Count (130-400) 10^3/uL 242 MPV (8.0-11.0) fL 9.5 Sodium (136-145) mmol/L 142 Potassium (3.5-5.1) mmol/L 4.2 Chloride (98-107) mmol/L 107 Carbon Dioxide (21.0-32.0) mmol/L 25.5 Anion Gap (3-11) mmol/L 9.5 BUN (7-18) mg/dL 20 H Creatinine (0.70-1.30) mg/dL 1.4 H Est GFR (CKD-EPI 2020) (mL/min/1.73m2) 54.75 Glucose (74-106) mg/dL 156 H Calcium (8.5-10.1) mg/dL 8.1 L Total Bilirubin (0.2-1.0) mg/dL 0.4 AST (15-37) U/L 19 ALT (16-63) U/L 28 Alkaline Phosphatase (46-116) U/L 118 H Total Protein (6.4-8.2) g/dL 6.6 Albumin (3.4-5.0) g/dL 3.6 Urine Color (Yellow) Yellow Urine Clarity (Clear) Clear Urine pH (5-8) 5.0 Ur Specific [place] (1.005-1.025) 1.020 Urine Protein (Negative) mg/dL Trace H Urine Ketones (Negative) mg/dL Negative Urine Blood (Negative) Trace-intact H Urine Nitrite (Negative) Negative Urine Bilirubin (Negative) Negative Urine Urobilinogen (Up to 0.2) mg/dL 0.2 Ur Leukocyte Esterase (Negative) Negative Urine RBC (0-2) HPF 0-2 Urine WBC (0-5) HPF Negative Ur Epithelial Cells (Negative) HPF Rare Urine Crystals (Negative) HPF Negative Urine Bacteria (Negative) HPF Negative Urine Casts (Negative) LPF 0-2 Hyaline Urine Mucus (Negative) Negative Ur Culture Indicated? No Urine Glucose (Negative) mg/dL Negative PAWSS Have you Been Recently Intoxicated or Drunk Within the Last 30 days?: No Have you Ever Experienced Previous Episodes of Alcohol Withdrawal?: No Have you ever Experienced Withdrawal Seizures?: No Have you ever Experienced Delirium Tremens(DT)s?: No Have you ever undergone Alcohol Rehabilitation Treatment (i.e, inpt ot outpatient treatment programs)?: No Have you ever Experienced Blackouts?: No Have you ever Combined Alcohol with other Downers within the last 90 days?: No Have you ever Combined Alcohol with any other Substance of Abuse during the last 90 days?: No Result: 0
== END 2022-09-14 12:11 | disposition home or self-care (01) ==
PROVIDERS: Emergency Provider Emergency Medicine; PCP Nurse Practitioner Family
DX: N13.2 Hydronephrosis with renal and ureteral calculous obstruction (principal); R10.9 Unspecified abdominal pain; R94.31 Abnormal electrocardiogram [ECG] [EKG]; R11.2 Nausea with vomiting, unspecified
CPT/HCPCS: 36415; 80053; 85027; 93005; 96361; 96374; 96375; 99283; 99284; 74176; 81003; 81015; 93010; J1170; J1885; J2405

== ENCOUNTER 2022-09-18 15:05 | Outpatient (REF) | payer MEDICARE, BC, SELFPAY ==
[2022-09-25 14:08] LABS: Source: Passed Stone
== END 2022-09-18 15:06 | disposition home or self-care (01) ==
LOC: LBN 15:05
PROVIDERS: PCP Nurse Practitioner Family; Visit Provider Family Medicine
DX: N20.0 Calculus of kidney (principal)
CPT/HCPCS: 82365

== ENCOUNTER 2023-06-21 17:36 | Outpatient (CLI) | payer MEDICARE, BC, SELFPAY | END 2023-06-21 17:37 | disposition home or self-care (01) | LOC: LBO 17:37 | PROVIDERS: PCP Nurse Practitioner Family; Visit Provider Family Medicine | DX: Z80.42 Family history of malignant neoplasm of prostate (principal); Z12.5 Encounter for screening for malignant neoplasm of prostate | CPT/HCPCS: 36415; 84153 ==

== ENCOUNTER 2024-11-30 16:07 | Outpatient (CLI) | payer MEDICARE, BC, SELFPAY ==
[2024-11-30 23:03] LABS: HBs Antibody, Qual Negative (See Note); HBs Antibody, Quant <3.1 mIU/mL (See Note); HIV-1/2 Ag & Ab Screen Negative (Negative); Hepatitis C Ab w Rflx HCV PCR Negative (Negative)
== END 2024-11-30 16:08 | disposition home or self-care (01) ==
LOC: LBO 16:07
PROVIDERS: PCP Family Medicine; Visit Provider Family Medicine
DX: Z11.59 Encounter for screening for other viral diseases (principal); Z00.00 Encounter for general adult medical examination without abnormal findings
CPT/HCPCS: 36415; 86704; 86706; 86803; 87340; 87389

== ENCOUNTER → 2025-02-15 14:30 | Outpatient (BNVA) | payer MEDICARE, BC, SELFPAY | PROVIDERS: PCP Family Medicine; Referring Provider Family Medicine; Visit Provider Physical Therapy Assistant | DX: Z12.11 Encounter for screening for malignant neoplasm of colon (principal); Z86.0101 Personal history of adenomatous and serrated colon polyps; Z86.0102 Personal history of hyperplastic colon polyps | CPT/HCPCS: S0285 ==